=== PATIENT | male | born 2000 | race Caucasian/White ===

== ENCOUNTER 2022-09-21 06:02 | Emergency (ER) | payer BC, SELFPAY ==
[2022-09-21 06:11] VITALS: BP 153/99; PULSE 95; RESP 16; TEMP 37.1; O2SAT 98; BMI 38.1
--- NOTE | 2022-09-21 06:55 | ED_ITS ---
HPI - General Adult General Chief complaint: Unspecified Complaint, Adult Stated complaint: Hasn't slept since 09/17 Time Seen by Provider: 09/21/22 06:07 Related Data Previous Rx's Medication Instructions Recorded trazodone 100 mg tablet 100 mg PO QHS #10 tabs 09/21/22 Allergies Allergy/AdvReac Type Severity Reaction Status Date / Time No Known Drug Allergies Allergy Verified 09/21/22 06:[address] [facility] Medical History (Updated 09/21/22 @ 06:57 by Abrahan Miguel MD) ADHD Social History Do you use any of these nicotine containing products: Vaping Products How often do you have a drink containing alcohol: 2-4 times a month AUDIT-C Alcohol total score: 2 Non-prescribed substance use: denies use Exam Const: Vital Signs, click to edit/add: Vital Signs - 24 hr 09/21/22 06:11 Temperature 98.7 F Pulse Rate [Left P ulse Oximeter] 95 Respiratory Rate 16 Blood Pressure [Le ft Upper Arm] 153/99 H Pulse Oximetry 98 Oxygen Delivery Me thod Room Air Course Vital Signs Vital signs: Initial Vital Signs Temperature 98.7 F 09/21/22 06:11 Temperature Source Temporal Artery Scan 09/21/22 06:11 Pulse Rate 95 09/21/22 06:11 Respiratory Rate 16 09/21/22 06:11 Blood Pressure 153/99 H 09/21/22 06:11 Blood Pressure Mean 117 09/21/22 06:11 Blood Pressure Position Sitting 09/21/22 06:11 Pulse Oximetry 98 09/21/22 06:11 Oxygen Delivery Method 09/21/22 06:11 Vital Signs Temperature 98.7 F 09/21/22 06:11 Pulse Rate 95 09/21/22 06:11 Respiratory Rate 16 09/21/22 06:11 Blood Pressure 153/99 H 09/21/22 06:11 Pulse Oximetry 98 09/21/22 06:11 Oxygen Delivery Method 09/21/22 06:11 Temperature 98.7 F 09/21/22 06:11 Pulse Rate 95 09/21/22 06:11 Respiratory Rate 16 09/21/22 06:11 Blood Pressure 153/99 H 09/21/22 06:11 Pulse Oximetry 98 09/21/22 06:11 Oxygen Delivery Method 11/04/22 06:11 Discharge Plan Discharge Clinical Impression: Sleep difficulties Patient Disposition: Home, Self-Care Condition: Stable Additional Instructions: Trazodone 100 mg as needed for sleep. Follow-up in the clinic for further evaluation. Avoid caffeine. Prescriptions: New trazodone 100 mg tablet 100 mg PO QHS Qty: 10 0RF Follow Up/Referrals: Provider,Not a Local [Primary Care Provider] - Stand Alone Forms: [employer] Info Instructions
--- OUTSIDE RECORDS SUMMARY | 2022-09-21 07:22 | XMS_ITS | Clinical Summary ---
:2000 Author Organization [facility] [place] [address] Care Team Providers Name Role Phone Clinic, No Pcp Or Primary Care Provider Unavailable Allergies No known active allergies Medications No known medications Active Problems Problem Noted Date Social phobia 07/08/2008 Other bipolar disorders 07/08/2008 Obsessive-compulsive disorders 07/08/2008 Attention deficit disorder with hyperactivity(314.01) 07/08/2008 Immunizations Name Administration Dates Next Due DTaP 04/18/2005, 03/28/2001, 05/31/2000, 04/05/2000, 02/01/2000 Hepatitis A (Peds) 06/28/2014 Hepatitis B (Peds) 09/27/2000, 05/31/2000, 04/05/2000 Hib Conjugate, Unspecified 03/28/2001, 05/31/2000, 0, 02/01/2000 Human Papilloma Virus Vaccine 06/28/2014 Inactivated Polio Vaccine 04/18/2005, 09/27/2000, 04/05/2000 , 02/01/2000 Influenza Virus, Unspecified 09/18/2020 MMR 04/18/2005, 03/28/2001 Meningococcal Vaccine (Menveo) 04/15/2012 Pneumococcal conj 13-Valent (Prevnar 12/05/2001, 03/28/2001 13) Tdap 04/15/2012 Varicella Vaccine 04/15/2012, 03/28/2001 Family History Medical History Relation Name Comments Psychiatric illness Father Bipolar, Edenilson izophrenia Hyperlipidemia Maternal Aunt Alcohol/Drug Maternal Grandfather Diabetes Maternal Grandfather Hyperlipidemia Maternal Grandfather Hyperlipidemia Maternal Grandmother Hypertension Maternal Grandmother Hyperlipidemia Maternal Uncle Good Health Mother Psychiatric illness Mother anxiety, dep ression Alcohol/Drug Paternal Grandmother Heart Disease Paternal Grandmother Relation Name Status Comments Brother 1 Alive Brother 2 Alive Brother 3 Alive Brother 4 Alive Father Alive Maternal Aunt Maternal Grandfather Alive Maternal Grandmother Alive Maternal Uncle Mother Alive Paternal Grandfather Alive Paternal Grandmother Alive Sister Alive Social History Tobacco Use Types Packs/Day Years Used Date Former Smoker Cigarettes Smokeless Tobacco: Never Used Tobacco Cessation: Counseling Given: Yes Alcohol Use Standard Drinks/Week Comments Yes 0 (1 standard drink = 0.6 oz pure alcoho l) Alcohol Habits Answer Date Recorded How often do you have a drink containing alcohol? 2-3 times a week 01/10/2021 How many drinks containing alcohol do you have on a 1 or 2 01/10/2021 typical day when you are drinking? How often do you have six or more drinks on one Monthly 01/10/2021 occasion? Comment: Not asked Sex Assigned at Date Recorded Not on file Obstetrics History Last Filed Vital Signs Vital Sign Reading Time Taken Comments Blood Pressure 139/91 06/10/2019 8:51 PM CDT Pulse 90 06/10/2019 8:51 PM CDT Temperature 37.3 ??C (99.2 ??F) 06/10/2019 8:51 PM CDT Respiratory Rate 18 06/10/2019 8:51 PM CDT Oxygen Saturation 97% 06/10/2019 8:51 PM CDT Inhaled Oxygen Concentration - - Weight 97.5 kg (215 lb) 06/10/2019 8:51 PM CDT Height 180.3 cm (5' 11) 06/10/2019 8:51 PM CDT Body Mass Index 29.99 06/10/2019 8:51 PM CDT Plan of Treatment Health Maintenance Due Date Last Done Comments Depression screening for age 12+ 2011 HPV series for age 9-26 (2 - Male 2-dose series) 12/29/2014 06/28/2014 BMI (ht and wt on same day) for age 18+ 2017 Hepatitis C screening for age 18-79 2017 COVID-19 vaccine series (2 - Moderna series) 02/25/2021 Tetanus booster 04/15/2022 04/15/2012 Influenza for age 9-49 07/19/2022 09/18/2020 Tdap Completed 04/15/2012 Results Not on filefrom Last 3 Months Insurance Payer Benefit Plan / Subscriber ID Effective Dates Phone Addre ss Type Group BLUE [employer]OSS [employer] OF [id number] 2021-Present [address] [address] [place] [address] [address] (Home) [address] [place] [id number] [address] Motor Vehicle Self 2000 [id number] (Home) [place] [id number] Care Teams Inclusion Internship Relationship Specialty Start Date End Date Clinic, No Pcp Or PCP - General 06/10/19 .
== END 2022-09-21 07:19 | disposition home or self-care (01) ==
LOC: ED 07:20
PROVIDERS: Emergency Provider Family Medicine
DX: G47.9 Sleep disorder, unspecified (principal)
CPT/HCPCS: 99282